=== PATIENT | female | born 1995 | race Caucasian/White ===

== ENCOUNTER 2019-12-04 12:09 | Emergency (ER) | payer MEDICAID ==
[~2019-12-04] VITALS: Ht 162.6 cm; Wt 54.5 kg
[2019-12-04 12:15] VITALS: Ht 162.6 cm; Wt 54.5 kg
[2019-12-04 12:35] LABS: BILIRUBIN NEGATIVE (NEGATIVE); GLUCOSE NEGATIVE (NEGATIVE); KETONE NEGATIVE (NEGATIVE); NITRITE NEGATIVE (NEGATIVE); SPECIFIC GRAVITY 1.015 (1.005-1.020); UROBILINOGEN NORMAL (NORMAL)
[2019-12-04] MEDS ORDERED: MACROBID100 MG PO (12:55)
[2019-12-04] MEDS ORDERED: KEFLEX500 MG PO (12:55)
[2019-12-04] MEDS ORDERED: DIFLUCAN150 MG PO (12:55)
[2019-12-04 13:05] VITALS: BP 112/72
== END 2019-12-04 13:06 | disposition home or self-care (01) ==
LOC: D.ER 12:09
PROVIDERS: Family Medicine
DX: R30.0 Dysuria (principal); R35.0 Frequency of micturition

== ENCOUNTER 2020-04-11 21:41 | Emergency (ER) | payer MEDICAID ==
[~2020-04-11] VITALS: Ht 162.6 cm; Wt 63.6 kg
[~2020-04-11 21:41] MED LIST: DIFLUCAN150 MG PO; KEFLEX500 MG PO; MACROBID100 MG PO
[2020-04-11 22:03] VITALS: BP 103/58; Ht 162.6 cm; Wt 63.6 kg
[2020-04-11 23:08] LABS: BILIRUBIN NEGATIVE (NEGATIVE); KETONE NEGATIVE (NEGATIVE); NITRITE NEGATIVE (NEGATIVE); UROBILINOGEN NORMAL mg/dL (< 2)
[2020-04-11 23:10] LABS: BACTERIA FEW /HPF (NONE SEEN); EPITHELIAL CELLS 0-5 /hpf (0-5)
== END 2020-04-11 23:30 | disposition home or self-care (01) ==
LOC: D.ER 21:41
PROVIDERS: Family Medicine
DX: R30.0 Dysuria (principal); Z20.2 Contact with and (suspected) exposure to infections with a predominantly sexual mode of transmission